=== PATIENT | female | born 2000 ===

== ENCOUNTER 2020-04-29 10:33 | Inpatient (IN) | payer OTHER, SELFPAY ==
[2020-04-29] VITALS (13 sets, daily range): BP systolic 119–156; BP diastolic 67–86; PULSE 82–115; RESP 16–20; TEMP 36.2–37.2; O2SAT 94–100; BMI 38.7
--- NOTE | 2020-04-29 11:02 | ED_ITS ---
HPI - Nausea/Vomiting/Diarrhea General Chief complaint: Nausea/Vomiting/Diarrhea <Lily Reyes NP - Last Filed: 04/29/20 17:23> Stated complaint: vomiting <Lily Reyes NP - Last Filed: 04/29/20 17:23> Time Seen by Provider: 04/29/20 10:57 <Lily Reyes NP - Last Filed: 04/29/20 17:23> Source: patient <Lily Reyes NP - Last Filed: 04/29/20 17:23> Mode of arrival: ambulatory <Lily Reyes NP - Last Filed: 04/29/20 17:23> Limitations: no limitations <Lily Reyes NP - Last Filed: 04/29/20 17:23> History of Present Illness HPI Narrative: 19 yo female previously healthy here with generalized abdominal pain, vomiting, diarrhea since last evening. The patient tells me that she ate [employer] (spicy chips) around 23:00 and then soon after developed abdominal pain with 2 episodes of vomiting. This morning continued pain and had 2 episodes of diarrhea. No vomiting this morning. No fevers, chills, urinary symptoms. <Lily Reyes NP - Last Filed: 04/29/20 17:23> MD elicited complaint: nausea, vomiting, diarrhea and abdominal pain <Lily Reyes NP - Last Filed: 04/29/20 17:23> Onset (ago): day(s) <Lily Reyes NP - Last Filed: 04/29/20 17:23> Associated nausea: Yes <Lily Reyes NP - Last Filed: 04/29/20 17:23> Associated abdominal pain: Yes <Lily Reyes NP - Last Filed: 04/29/20 17:23> Location of pain: diffuse <Lily Reyes NP - Last Filed: 04/29/20 17:23> Pain consistency: constant <CARMINE Christopher Last Filed: 04/29/20 17:23> Severity: mild <Lily Reyes NP - Last Filed: 04/29/20 17:23> Quality: cramping <Lily Reyes NP - Last Filed: 04/29/20 17:23> Exacerbating factors: none <Lily Reyes NP - Last Filed: 04/29/20 17:23> Relieving factors: none <Lily Reyes NP - Last Filed: 04/29/20 17:23> Associated symptoms: nausea/vomiting <Lily Reyes NP - Last Filed: 04/29/20 17:23> Related Data Home medications: Home Medications Medication Instructions Recorded Confirmed No Known Home Meds 04/29/20 04/29/20 <Lily Reyes NP - Last Filed: 04/29/20 17:23> Allergies/Adverse reactions: Allergies Allergy/AdvReac Type Severity Reaction Status Date / Time No Known Allergies Allergy Verified 04/29/20 10:59 <Lily Reyes NP - Last Filed: 04/29/20 17:23> Review of Systems Review of Systems: Yes all other systems are reviewed and are negative <Lily Reyes NP - Last Filed: 04/29/20 17:23> Constitutional: Constitutional: Reports no additional constitutional complaints, Denies body ache(s), Denies chills, Denies fever(s), Denies headache(s) and Denies weakness <Lily Reyes NP - Last Filed: 04/29/20 17:23> Eyes: Eyes: Reports no additional eye complaints and Denies change in vision <Lily Reyes NP - Last Filed: 04/29/20 17:23> ENT: Reports system reviewed and no additional complaints, except as doc umented, Denies dizziness, Denies headache(s), Denies nasal congestion, Denies nasal discharge and Denies neck pain <Lily Reyes NP - Last Filed: 04/29/20 17:23> Cardiovascular: Cardiovascular: Reports no additional cardiovascular complaints, Denies chest pain, Denies leg edema and Denies dyspnea <Lily Reyes NP - Last Filed: 04/29/20 17:23> Respiratory: Respiratory: Reports no additional respiratory complaints, Denies cough and Denies dyspnea <Lily Reyes NP - Last Filed: 04/29/20 17:23> Gastrointestinal: Gastrointestinal: Reports no additional gastrointestinal complaints, Reports abdominal pain, Reports diarrhea, Reports nausea and Reports vomiting <Lily Reyes NP - Last Filed: 04/29/20 17:23> Genitourinary: Genitourinary: Reports no additional female genitourinary complaints and Denies urinary incontinence <Lily Reyes NP - Last Filed: 04/29/20 17:23> Musculoskeletal: Musculoskeletal: Reports no additional musculoskeletal complaints, Denies back pain, Denies arthralgias, Denies joint swelling, Denies neck pain, Denies numbness and Denies tingling <Lily Reyes NP - Last Filed: 04/29/20 17:23> Integumentary/Breasts: Skin/Breast: Reports system reviewed and no additional complaints, except as docu and Denies rash <Lily Reyes NP - Last Filed: 04/29/20 17:23> Neurologic: Reports system reviewed and no additional complaints, except as documented, Denies Abnormal speech present, Denies dizziness, Denies headache(s), Denies numbness, Denies tingling and Denies weakness <Lily Reyes NP - Last Filed: 04/29/20 17:23> [facility] Past Medical History Attestation statement: The following information was validated with the patient. <Lily Reyes NP - Last Filed: 04/29/20 17:23> Source: old records reviewed and nursing notes reviewed <Lily Reyes NP - Last Filed: 04/29/20 17:23> Medical History: Medical History (Updated 04/30/20 @ 07:44 by Emily Landis PA-C) Bartholin cyst No known health problems <Lily Reyes NP - Last Filed: 04/29/20 17:23> Social History Social History: Social History Household Members: Significant Other Housing: Apartment Alcohol intake: never Smoking Status: Never smoker service: No Current occupational status: employed <CARMINE Christopher Last Filed: 04/29/20 17:23> Physical Exam Vital Signs: Vital Signs: Last Vital Signs Temp 98.4 F 04/30/20 07:48 Pulse 93 04/30/20 07:48 Resp 18 04/30/20 07:48 BP 109/66 04/30/20 07:48 Pulse Ox 97 04/30/20 07:48 Body Mass Index 38.7 <Lily Reyes NP - Last Filed: 04/29/20 17:23> Vital Signs: Last Vital Signs Temp 98.4 F 04/30/20 07:48 Pulse 93 04/30/20 07:48 Resp 18 04/30/20 07:48 BP 109/66 04/30/20 07:48 Pulse Ox 97 04/30/20 07:48 Body Mass Index 38.7 <Igor Zarate MD - Last Filed: 05/11/20 09:35> Const: General: cooperative, healthy appearing, comfortable and no acute distress <Lily Reyes NP - Last Filed: 04/29/20 17:23> Orientation/consciousness: patient oriented x3 <Lily Reyes NP - Last Filed: 04/29/20 17:23> Limitations: no limitations <Lily Reyes NP - Last Filed: 04/29/20 17:23> HENMT: Head: Yes normal to inspection <Lily Reyes NP - Last Filed: 04/29/20 17:23> Ears: hearing grossly normal bilaterally <Lily Reyes NP - Last Filed: 04/29/20 17:23> General nose exam: Normal external nose present <Lily Reyes NP - Last Filed: 04/29/20 17:23> Face and sinus: Yes normal facial exam <Lily Reyes NP - Last Filed: 04/29/20 17:23> Mouth: Normal oral and palatal mucosa present <Lily Reyes NP - Last Filed: 04/29/20 17:23> Throat: Yes posterior oropharynx normal <Lily Reyes NP - Last Filed: 04/29/20 17:23> Eyes: General: appearance normal, both eyes and all related structures <Lily Reyes NP - Last Filed: 04/29/20 17:23> Pupils: Equal, round and reactive pupils present <Lily Reyes NP - Last Filed: 04/29/20 17:23> Neck: Neck: Yes normal visual inspection <Lily Reyes [employer] - Last Filed: 04/29/20 17:23> Chest: Chest palpation & inspection: normal inspection of the chest <Lily Reyes [employer] - Last Filed: 04/29/20 17:23> Resp: Effort & Inspection: normal respiratory effort <Lily Reyes [employer] - Last Filed: 04/29/20 17:23> Auscultation: clear to auscultation bilaterally <Lily Reyes [employer] - Last Filed: 04/29/20 17:23> Cardio: Rate: regular rate <Lily Reyes NP - Last Filed: 04/29/20 17:23> Rhythm: regular rhythm <Lily Reyes [employer] - Last Filed: 04/29/20 17:23> Peripheral pulses: Peripheral pulses 2+ throughout <Lily Reyes NP - Last Filed: 04/29/20 17:23> GI: Other: Moderate diffuse tenderness, no focal tenderness <Lily Reyes [employer] - Last Filed: 04/29/20 17:23> Inspection: Yes normal to inspection <Lily Reyes NP - Last Filed: 04/29/20 17:23> Palpation (GI): Soft to palpation and nontender <Lily Reyes [employer] - Last Filed: 04/29/20 17:23> Auscultation: normal bowel sounds <Lily Reyes NP - Last Filed: 04/29/20 17:23> Back/Spine/Pelvis: Thoracic/Lumbar Spine: thoracic and lumbar spine normal to inspection <Lily Reyes NP - Last Filed: 04/29/20 17:23> Skin: General skin exam: no rashes or lesions noted <Lily Reyes [employer] - Last Filed: 04/29/20 17:23> Neuro: General: patient oriented x3, no focal motor deficits and normal sensation to monofilament <Lily Reyes NP - Last Filed: 04/29/20 17:23> Cranial nerves: Yes Equal, round and reactive pupils present <Lily Reyes NP - Last Filed: 04/29/20 17:23> Cognition (Neuro): normal cognition <Lily Reyes NP - Last Filed: 04/29/20 17:23> Speech: No Abnormal speech present <Lily Reyes NP - Last Filed: 04/29/20 17:23> Gait exam (Neuro): Normal gait present <Lily Reyes NP - Last Filed: 04/29/20 17:23> Motor exam (neuro): 5/5 motor strength present throughout <Lily Reyes NP - Last Filed: 04/29/20 17:23> Extrem: General: Yes normal to inspection <Lily Reyes NP - Last Filed: 04/29/20 17:23> Course Course Course Narrative: 19-year-old female here with generalized abdominal pain described as cramping with vomiting and diarrhea since last night after eating some spicy chips. On exam the patient has mild diffuse tenderness. She has no focal tenderness. Will check labs, UA. Place PIV and give normal saline bolus, antiemetic, PPI and GI Cocktail. 1300-Continued pain, vomiting. Labs reviewed and unremarkable. UA, negative. Will provide analgesia and repeat antiemetic. Check imaging. 1415-CT consistent with appendicitis. Call out to surgery to discuss. 1430-spoke to Dr. Ram from surgery. Antibiotics ordered per her request. COVID swab ordered. She will be down to admit the patient. 1645-Patient admitted by Dr Avila. <Lily Reyes NP - Last Filed: 17:23> I have reviewed the chart <Igor Zarate MD - Last Filed: 05/11/20 09:35> MDM - Nausea/Vomiting/Diarrhea MDM Narrative Medical decision making narrative: Gastritis, gastroenteritis, GERD, choleystitis, appendicitis <Lily Reyes NP - Last Filed: 04/29/20 17:23> Medical Records Attestation: I reviewed the patient's medical records. <Lily Reyes NP - Last Filed: 04/29/20 17:23> Lab Data Attestation: I reviewed the patient's lab results. <Lily Reyes NP - Last Filed: 04/29/20 17:23> Result diagrams: : 04/29/20 11:15 04/29/20 11:15 <Lily Reyes NP - Last Filed: 04/29/20 17:23> Labs: Lab Results 04/29/20 04/29/20 04/29/20 Range/Units 11:15 11:15 11:15 WBC 11.9 H (4.8-10.8) X10*3/uL RBC 4.78 (4.20-5.50) X10*6/uL Hgb 13.3 (12.0-16.0) g/dl Hct 40.5 (37-47) % MCV 84.7 (80-98) fL MCH 27.8 (27.0-33.0) pg MCHC 32.8 (31.0-35.0) g/dl RDW 13.4 (11.0-16.0) % Plt Count 275 (160-400) X10*3/uL MPV 10.6 (9.4-12.3) fL Immature Gran % (Auto) 0.3 (0.0-0.4) % Neut % (Auto) 87.5 H (45-73) % Lymph % (Auto) 7.8 L (20-40) % [place] % (Auto) 3.8 (2-11) % Eos % (Auto) 0.3 (0-4) % Baso % (Auto) 0.3 (0-2) % Lymph # (Auto) 0.9 L (1.2-4.9) X10*3/uL [place] # (Auto) 0.5 (0.1-1.2) X10*3/uL Eos # (Auto) 0.0 (0.0-0.4) X10*3/uL Baso # (Auto) 0.0 (0.0-0.2) X10*3/uL Abs Immat Gran (auto) 0.03 (0.00-0.03) X10*3/uL Absolute Neuts (auto) 10.4 H (2.0-8.3) X10*3/uL Absolute Nucleated RBC 0.000 (0.0-0.012) X10*3/uL Nucleated RBC % (auto) 0.0 (0.0-0.2) /100WBC Hold Blue Top SEE NOTE Sodium 136 (135-145) mmol/L Potassium 4.2 (3.3-5.1) mmol/l Chloride 101 (96-108) mmol/L Carbon Dioxide 25 (22-29) mmol/L Anion Gap 14 (12-20) BUN 7 L (9-16) mg/dL Creatinine 0.67 (0.5-1.4) mg/dL Estim Creat Clear Calc 160.3 Estimated GFR > 60 Random Glucose 168 H (60-115) mg/dL Lactic Acid (0.5-2.0) mmol/L Calcium 8.9 (8.4-10.2) mg/dL Total Bilirubin 0.5 (0.0-1.0) mg/dL Direct Bilirubin 0.2 (0.0-0.5) mg/dL AST 41 H (5-31) U/L ALT 60 H (0-31) U/L Alkaline Phosphatase 101 (39-117) U/L Total Protein 7.2 (6.5-8.0) g/dL Albumin 4.2 (3.5-5.0) g/dL Urine Color Urine Appearance Urine pH (5.0-8.0) Ur Specific [place] (1.005-1.025) Urine Protein (NEG-TRACE) MG/DL Urine Glucose (UA) (NEG) MG/DL Urine Ketones (NEG) MG/DL Urine Blood (NEG) Urine Nitrite (NEG) Ur Leukocyte Esterase (NEG) Urine RBC (0) /HPF Urine WBC (0-4) /HPF Ur Squamous Epith Cells /LPF Talc Crystals /LPF Urine Bacteria /LPF Urine Mucus /LPF Urine Test (NEGATIVE) COVID-19 ([facility]) (Negative) COVID-19 Clin Com 04/29/20 04/29/20 04/29/20 Range/Units 12:26 14:45 14:45 WBC (4.8-10.8) X10*3/uL RBC (4.20-5.50) X10*6/uL Hgb (12.0-16.0) g/dl Hct (37-47) % MCV (80-98) fL MCH (27.0-33.0) pg MCHC (31.0-35.0) g/dl RDW (11.0-16.0) % Plt Count (160-400) X10*3/uL MPV (9.4-12.3) fL Immature Gran % (Auto) (0.0-0.4) % Neut % (Auto) (45-73) % Lymph % (Auto) (20-40) % [place] % (Auto) (2-11) % Eos % (Auto) (0-4) % Baso % (Auto) (0-2) % Lymph # (Auto) (1.2-4.9) X10*3/uL [place] # (Auto) (0.1-1.2) X10*3/uL Eos # (Auto) (0.0-0.4) X10*3/uL Baso # (Auto) (0.0-0.2) X10*3/uL Abs Immat Gran (auto) (0.00-0.03) X10*3/uL Absolute Neuts (auto) (2.0-8.3) X10*3/uL Absolute Nucleated RBC (0.0-0.012) X10*3/uL Nucleated RBC % (auto) (0.0-0.2) /100WBC Hold Blue Top Sodium (135-145) mmol/L Potassium (3.3-5.1) mmol/l Chloride (96-108) mmol/L Carbon Dioxide (22-29) mmol/L Anion Gap (12-20) BUN (9-16) mg/dL Creatinine (0.5-1.4) mg/dL Estim Creat Clear Calc Estimated GFR Random Glucose (60-115) mg/dL Lactic Acid 1.4 (0.5-2.0) mmol/L Calcium (8.4-10.2) mg/dL Total Bilirubin (0.0-1.0) mg/dL Direct Bilirubin (0.0-0.5) mg/dL AST (5-31) U/L ALT (0-31) U/L Alkaline Phosphatase (39-117) U/L Total Protein (6.5-8.0) g/dL Albumin (3.5-5.0) g/dL Urine Color YELLOW Urine Appearance HAZY Urine pH 8.0 (5.0-8.0) Ur Specific [place] 1.020 (1.005-1.025) Urine Protein NEG (NEG-TRACE) MG/DL Urine Glucose (UA) NEG (NEG) MG/DL Urine Ketones NEG (NEG) MG/DL Urine Blood 3+ H (NEG) Urine Nitrite NEG (NEG) Ur Leukocyte Esterase NEG (NEG) Urine RBC 10-14 H (0) /HPF Urine WBC 0 (0-4) /HPF Ur Squamous Epith Cells 1+ /LPF Talc Crystals 2+ /LPF Urine Bacteria NONE /LPF Urine Mucus 1+ /LPF Urine Test NEGATIVE (NEGATIVE) COVID-19 ([facility]AYLA) Negative (Negative) COVID-19 Clin Com See Note <Lily Reyes NP - Last Filed: 04/29/20 17:23> Lab Results 04/29/20 04/29/20 04/29/20 Range/Units 11:15 11:15 11:15 WBC 11.9 H (4.8-10.8) X10*3/uL RBC 4.78 (4.20-5.50) X10*6/uL Hgb 13.3 (12.0-16.0) g/dl Hct 40.5 (37-47) % MCV 84.7 (80-98) fL MCH 27.8 (27.0-33.0) pg MCHC 32.8 (31.0-35.0) g/dl RDW 13.4 (11.0-16.0) % Plt Count 275 (160-400) X10*3/uL MPV 10.6 (9.4-12.3) fL Immature Gran % (Auto) 0.3 (0.0-0.4) % Neut % (Auto) 87.5 H (45-73) % Lymph % (Auto) 7.8 L (20-40) % [place] % (Auto) 3.8 (2-11) % Eos % (Auto) 0.3 (0-4) % Baso % (Auto) 0.3 (0-2) % Lymph # (Auto) 0.9 L (1.2-4.9) X10*3/uL [place] # (Auto) 0.5 (0.1-1.2) X10*3/uL Eos # (Auto) 0.0 (0.0-0.4) X10*3/uL Baso # (Auto) 0.0 (0.0-0.2) X10*3/uL Abs Immat Gran (auto) 0.03 (0.00-0.03) X10*3/uL Absolute Neuts (auto) 10.4 H (2.0-8.3) X10*3/uL Absolute Nucleated RBC 0.000 (0.0-0.012) X10*3/uL Nucleated RBC % (auto) 0.0 (0.0-0.2) /100WBC Hold Blue Top SEE NOTE Sodium 136 (135-145) mmol/L Potassium 4.2 (3.3-5.1) mmol/l Chloride 101 (96-108) mmol/L Carbon Dioxide 25 (22-29) mmol/L Anion Gap 14 (12-20) BUN 7 L (9-16) mg/dL Creatinine 0.67 (0.5-1.4) mg/dL Estim Creat Clear Calc 160.3 Estimated GFR > 60 Random Glucose 168 H (60-115) mg/dL Lactic Acid (0.5-2.0) mmol/L Calcium 8.9 (8.4-10.2) mg/dL Total Bilirubin 0.5 (0.0-1.0) mg/dL Direct Bilirubin 0.2 (0.0-0.5) mg/dL AST 41 H (5-31) U/L ALT 60 H (0-31) U/L Alkaline Phosphatase 101 (39-117) U/L Total Protein 7.2 (6.5-8.0) g/dL Albumin 4.2 (3.5-5.0) g/dL Urine Color Urine Appearance Urine pH (5.0-8.0) Ur Specific [place] (1.005-1.025) Urine Protein (NEG-TRACE) MG/DL Urine Glucose (UA) (NEG) MG/DL Urine Ketones (NEG) MG/DL Urine Blood (NEG) Urine Nitrite (NEG) Ur Leukocyte Esterase (NEG) Urine RBC (0) /HPF Urine WBC (0-4) /HPF Ur Squamous Epith Cells /LPF Talc Crystals /LPF Urine Bacteria /LPF Urine Mucus /LPF Urine Test (NEGATIVE) COVID-19 ([facility]LA) (Negative) COVID-19 Clin Com 04/29/20 04/29/20 04/29/20 Range/Units 12:26 14:45 14:45 WBC (4.8-10.8) X10*3/uL RBC (4.20-5.50) X10*6/uL Hgb (12.0-16.0) g/dl Hct (37-47) % MCV (80-98) fL MCH (27.0-33.0) pg MCHC (31.0-35.0) g/dl RDW (11.0-16.0) % Plt Count (160-400) X10*3/uL MPV (9.4-12.3) fL Immature Gran % (Auto) (0.0-0.4) % Neut % (Auto) (45-73) % Lymph % (Auto) (20-40) % [place] % (Auto) (2-11) % Eos % (Auto) (0-4) % Baso % (Auto) (0-2) % Lymph # (Auto) (1.2-4.9) X10*3/uL [place] # (Auto) (0.1-1.2) X10*3/uL Eos # (Auto) (0.0-0.4) X10*3/uL Baso # (Auto) (0.0-0.2) X10*3/uL Abs Immat Gran (auto) (0.00-0.03) X10*3/uL Absolute Neuts (auto) (2.0-8.3) X10*3/uL Absolute Nucleated RBC (0.0-0.012) X10*3/uL Nucleated RBC % (auto) (0.0-0.2) /100WBC Hold Blue Top Sodium (135-145) mmol/L Potassium (3.3-5.1) mmol/l Chloride (96-108) mmol/L Carbon Dioxide (22-29) mmol/L Anion Gap (12-20) BUN (9-16) mg/dL Creatinine (0.5-1.4) mg/dL Estim Creat Clear Calc Estimated GFR Random Glucose (60-115) mg/dL Lactic Acid 1.4 (0.5-2.0) mmol/L Calcium (8.4-10.2) mg/dL Total Bilirubin (0.0-1.0) mg/dL Direct Bilirubin (0.0-0.5) mg/dL AST (5-31) U/L ALT (0-31) U/L Alkaline Phosphatase (39-117) U/L Total Protein (6.5-8.0) g/dL Albumin (3.5-5.0) g/dL Urine Color YELLOW Urine Appearance HAZY Urine pH 8.0 (5.0-8.0) Ur Specific [place] 1.020 (1.005-1.025) Urine Protein NEG (NEG-TRACE) MG/DL Urine Glucose (UA) NEG (NEG) MG/DL Urine Ketones NEG (NEG) MG/DL Urine Blood 3+ H (NEG) Urine Nitrite NEG (NEG) Ur Leukocyte Esterase NEG (NEG) Urine RBC 10-14 H (0) /HPF Urine WBC 0 (0-4) /HPF Ur Squamous Epith Cells 1+ /LPF Talc Crystals 2+ /LPF Urine Bacteria NONE /LPF Urine Mucus 1+ /LPF Urine Test NEGATIVE (NEGATIVE) COVID-19 ([facility]LA) Negative (Negative) COVID-19 Clin Com See Note <Igor Zarate MD - Last Filed: 05/11/20 09:35> Imaging Data CT scan - abdomen: Attestation: I personally reviewed and interpreted this imaging study as follows: <Lily Reyes NP - Last Filed: 04/29/20 17:23> Radiologist's impression: CLINICAL INFORMATION: Fall, trauma, pain COMPARISON: None TECHNIQUE: Left knee is imaged in 4 views including crosstable lateral projection. FINDINGS: There is a fracture involving the lateral tibial plateau with mild depression. There may be fracture line extending through the lateral tibial spine. There is no dislocation. The distal femur, fibula, and patella appear intact. There is moderate suprapatellar effusion without visible fatty fluid level. No bony destructive process. XR/XR knee LT 4V IMPRESSION: Fracture lateral tibial plateau with mild depression. <Lily Reyes NP - Last Filed: 04/29/20 17:23> Discharge Plan Discharge Clinical Impression: Acute appendicitis Qualifiers: Acute appendicitis type: unspecified acute appendicitis type Qualified Code(s): K35.80 - Unspecified acute appendicitis <Lily Reyes NP - Last Filed: 04/29/20 17:23> Patient Disposition: Admitted As Inpatient <Lily Reyes NP - Last Filed: 04/29/20 17:23> Interventions: Admission Worksheet (ED) Last Done: 04/29/20 16:55 <Lily Reyes NP - Last Filed: 04/29/20 17:23> Discharge Date/Time: 04/29/20 16:55 <Lily Reyes NP - Last Filed: 04/29/20 17:23>
[2020-04-29] MEDS: 0.9 % Sodium Chloride 1,000 ML 999 ML IV (11:20)
[2020-04-29] MEDS: ondansetron HCL 4 MG/2 ML VIAL IVPUSH ×2 (11:20→13:15)
[2020-04-29] MEDS: Magnesium Hydrox/Alum Hydrox 30 ML ORAL.SUSP PO (11:20)
[2020-04-29] MEDS: Lidocaine HCl Viscous 2 % 15 ML SOLUTION MUCOUS MEM (11:20)
[2020-04-29] MEDS: Famotidine/PF 20 MG/2 ML VIAL IVPUSH (11:20)
[2020-04-29 11:25] LABS: MANUAL DIFF FLAG NO
[2020-04-29 11:26] LABS: Basophils Percent Auto 0.3 % (0-2); Eosinophils Percent Auto 0.3 % (0-4); Hematocrit 40.5 % (37-47); Hemoglobin 13.3 g/dl (12.0-16.0); Imm Gran Abs Auto 0.03 X10*3/uL (0.00-0.03); Imm Gran Pct Auto 0.3 % (0.0-0.4); Lymphocytes Absolute Auto 0.9 X10*3/uL (1.2-4.9); Lymphocytes Percent Auto 7.8 % (20-40); Mean Corpuscular HGB Conc 32.8 g/dl (31.0-35.0); Mean Corpuscular Hemoglobin 27.8 pg (27.0-33.0); Mean Corpuscular Volume 84.7 fL (80-98); Mean Platelet Volume 10.6 fL (9.4-12.3); Monocytes Absolute Auto 0.5 X10*3/uL (0.1-1.2); Monocytes Percent Auto 3.8 % (2-11); Neutrophils Absolute Auto 10.4 X10*3/uL (2.0-8.3); Neutrophils Percent Auto 87.5 % (45-73); Platelet Count 275 X10*3/uL (160-400); Red Blood Count 4.78 X10*6/uL (4.20-5.50); Red Cell Distribution Width 13.4 % (11.0-16.0); White Blood Count 11.9 X10*3/uL (4.8-10.8)
[2020-04-29 11:54] LABS: Alanine Aminotransferase 60 U/L (0-31); Albumin Level 4.2 g/dL (3.5-5.0); Alkaline Phosphatase 101 U/L (39-117); Anion Gap 14 (12-20); Aspartate Amino Transferase 41 U/L (5-31); Bilirubin Direct 0.2 mg/dL (0.0-0.5); Bilirubin Total 0.5 mg/dL (0.0-1.0); Blood Urea Nitrogen 7 mg/dL (9-16); Calcium 8.9 mg/dL (8.4-10.2); Carbon Dioxide 25 mmol/L (22-29); Chloride 101 mmol/L (96-108); Creatinine Clr Calc Pharmacy 160.3; Estimated Glomerular Filt Rate > 60; Glucose Random 168 mg/dL (60-115); Potassium 4.2 mmol/l (3.3-5.1); Sodium 136 mmol/L (135-145); Total Protein 7.2 g/dL (6.5-8.0)
[2020-04-29 12:46] LABS: Glucose Urine UA NEG (NEG); Leukocyte Esterase Urine NEG (NEG); Nitrite Urine NEG (NEG); Urine Blood 3+ (NEG); Urine Ketones NEG (NEG); Urine Protein NEG (NEG-TRACE)
[2020-04-29 12:48] LABS: UPreg QC Valid YES; Urine Pregnancy NEGATIVE (NEGATIVE)
[2020-04-29 12:50] LABS: Appearance Urine HAZY; Color Urine YELLOW
[2020-04-29 13:01] LABS: Mucus Urine 1+ /LPF; Squamous Epithelial Cell Urine 1+ /LPF; WBC Urine 0 /HPF (0-4)
[2020-04-29 13:02] LABS: Urine Talc Crystals 2+ /LPF
--- NOTE | 2020-04-29 13:06 | CT_ITS ---
EXAMINATION: CT ABDOMEN AND PELVIS WITH CONTRAST CLINICAL INFORMATION: Indication abdominal pain, vomiting, diarrhea COMPARISON: None TECHNIQUE: Multidetector volumetric images were obtained from the superior aspect of the liver through the pubic symphysis following administration 85 mL of Omnipaque 350 intravenous contrast. Sagittal and coronal reformatted images were obtained on the technologist's workstation. Oral contrast: No This CT examination was performed using dose optimization techniques as appropriate, variously including the following: *Automated exposure control *Adjustment of mA and/or kV according to patient size (this includes techniques or standardized protocols for targeted exams where dose is matched to indication/reason for exam; i.e. extremities or head) *Use of iterative reconstruction technique DLP: 1055 mGy-cm FINDINGS: LUNG BASES: The visualized lung bases are unremarkable. LIVER, GALLBLADDER, AND BILIARY TREE: Liver is normal in size and smooth in contour. There is mild diffuse hepatic steatosis. No focal hepatic parenchymal lesion or intrahepatic ductal dilatation. The gallbladder is unremarkable with no evidence of radiopaque gallstones, gallbladder wall thickening, or obvious pericholecystic inflammatory changes. PANCREAS: Unremarkable. SPLEEN: Unremarkable. ADRENAL GLANDS: Unremarkable. KIDNEYS AND URETERS: Kidneys are normal in size and enhance symmetrically. There is no hydronephrosis, hydroureter, calculi, or perinephric stranding. There are 2 small right kidney upper to midpole, both under 1 cm. BLADDER: Unremarkable. GASTROINTESTINAL TRACT: The appendix is distended to 1.2 cm in diameter with fluid in the appendiceal lumen and mild appendiceal wall enhancement suggesting appendicitis. There is no significant stranding in the mesentery and no proximal obstruction, ascites, or fluid collection. ABDOMINAL WALL: Borderline fat-containing umbilical hernia under 3 cm. LYMPH NODES: There are some small mesenteric nodes central mesentery. No retroperitoneal or pelvic lymphadenopathy. VASCULAR: Circum-aortic left renal vein. PELVIC VISCERA: There are bilateral adnexal cysts, larger on right measuring 2.8 x 2.2 cm and left measuring 2.4 x 2.2 cm. No pelvic ascites. There is fluid in uterine cavity likely from menses. OSSEOUS STRUCTURES: No acute bony abnormality. Incidental bone island proximal left femur. Results called to provider Lily Reyes in the Emergency Department at [address]/CT abdomen pelvis w con IMPRESSION: 1. Findings consistent with early appendicitis. No abscess or proximal obstruction. 2. Small bilateral adnexal cysts versus dominant follicle, right 2.8 x 2.2 cm. Left 2.4 x 2.2 cm. 3. Hepatic steatosis.
[2020-04-29] MEDS: Morphine Sulfate 4 MG/ML CARTRIDGE IVPUSH (13:15)
[2020-04-29] MEDS: iohexoL 350 MG/ML 100 ML INFUS..BTL 85 ML IV (13:47)
[2020-04-29 15:14] LABS: Lactic Acid 1.4 mmol/L (0.5-2.0)
[2020-04-29 15:15] LABS: COVID-19 Test Negative (Negative); IDNOW Serial# 9DD0AD1C
[2020-04-29] MEDS: Piperacillin Sodium/Tazobactam 3.375 GM in 0.9 % Sodium Chloride 50 ML IV (15:15)
--- NOTE | 2020-04-29 15:20 | PC.NURSE ---
pt denies discomfort at this time, no abd guarding or facial grimace noted. md guadalupe has evaluated pt, plan is for surgery tonight, pt is aware and agreeable to plan of care.
--- NOTE | 2020-04-29 15:26 | PM.HPGS ---
History of Present Illness History of Present Illness Date of Service: 04/29/20 Chief complaint: vomiting Narrative: Shabana Hall is a 19 year old female who had acute onset of abdominal pain nausea and vomiting around midnight last night after eating some spicy chips. The symptoms persisted and the pain became worse as the night went on leading to presentation to the emergency room. Initially, the pain was in the mid epigastric area, but over time it has migrated to the lower abdomen. She does not report fever or chills. She had 1 similar episode in the past that resolved spontaneously after short period of time. She does not report diarrhea or constipation. White blood count is mildly elevated at 11.9. CT scan of the abdomen and pelvis is consistent with early acute appendicitis. Review of Systems Constitutional: Constitutional: Denies headache(s) and Denies weakness ENT: Denies dizziness and Denies headache(s) Cardiovascular: Cardiovascular: Denies chest pain, Denies irregular heart rhythm and Reports dyspnea on exertion (Mild) Respiratory: Respiratory: Denies cough, Reports dyspnea on exertion (Mild) and Denies wheezing Genitourinary: Comments: No dysuria Musculoskeletal: Musculoskeletal: Denies numbness and Denies tingling Neurologic: Reports system reviewed and no additional complaints, except as documented, Denies Abnormal speech present, Denies dizziness, Denies headache(s), Denies numbness, Denies tingling and Denies weakness Allergic/Immunologic: Allergic/Immunologic: Denies wheezing PMFSH Past Medical History Medical History No known health problems Social History Social History Alcohol intake: never Smoking Status: Never smoker Use of substances other than those prescribed or required for medical reasons: No Advance Directives: No Advance Directives Information Provided: No Meds Allergies Allergy/AdvReac Type Severity Reaction Status Date / Time No Known Allergies Allergy Verified 04/29/20 10:59 Home Medications Medication Instructions Recorded Confirmed Type No Known Home Meds 04/29/20 04/29/20 History Physical Exam Vital Signs: Vital Signs: Last Vital Signs Temp 98.9 F 04/29/20 12:51 Pulse 98 04/29/20 15:19 Resp 16 04/29/20 15:19 BP 144/67 H 04/29/20 15:19 Pulse Ox 99 04/29/20 15:19 Body Mass Index 38.7 Const: Other: Alert, appears comfortable, in no acute distress HENMT: Head: Yes normocephalic and Yes atraumatic Neck: Other: Supple, trachea midline Resp: Other: Clear to auscultation Cardio: Other: Regular rate and rhythm without audible murmurs GI: Other: Round, soft, tender lower midline and right lower quadrant, greater and right lower quadrant with rebound, no palpable masses Rectal Exam - Female: deferred Neuro: Speech: No Abnormal speech present Extrem: General: Yes normal to inspection Psych: Insight: Good insight present (Psych) Judgement: Good judgement present (Psych) Results Results Labs: Short CBC 04/29/20 Range/Units 11:15 WBC 11.9 H (4.8-10.8) X10*3/uL Hgb 13.3 (12.0-16.0) g/dl Hct 40.5 (37-47) % Plt Count 275 (160-400) X10*3/uL BMP 04/29/20 11:15 Sodium 136 Potassium 4.2 Chloride 101 Carbon Dioxide 25 BUN 7 L Creatinine 0.67 Calcium 8.9 Liver Function 04/29/20 Range/Units 11:15 Total Bilirubin 0.5 (0.0-1.0) mg/dL Direct Bilirubin 0.2 (0.0-0.5) mg/dL AST 41 H (5-31) U/L ALT 60 H (0-31) U/L Alkaline Phosphatase 101 (39-117) U/L Albumin 4.2 (3.5-5.0) g/dL Urine 04/29/20 Range/Units 12:26 Urine Color YELLOW Urine Appearance HAZY Urine pH 8.0 (5.0-8.0) Ur Specific [place] 1.020 (1.005-1.025) Urine Protein NEG (NEG-TRACE) MG/DL Urine Glucose (UA) NEG (NEG) MG/DL Urine Test NEGATIVE (NEGATIVE) Assessment and Plan (1) Acute appendicitis: Problem details: We discussed the diagnosis of acute appendicitis and treatment options including antibiotic therapy, laparoscopic appendectomy and open appendectomy. We reviewed the pros and cons of each. Status: Acute Acute appendicitis. She has elected to proceed with laparoscopic appendectomy. She is aware that open appendectomy may be required. She is familiar with the technique and risks including but not limited to infection, bleeding, error in diagnosis and appendiceal stump leak as well as incisional hernia of open appendectomy is required. She will be started on IV antibiotics. Surgery is planned for later this afternoon.
--- NOTE | 2020-04-29 16:22 | P.CONAN_ITS ---
HPI - Anesthesia Eval Consult details Narrative: 19 F previously healthy p/w acute appendicitis for lap appendectomy [facility] Past Medical History Medical History (Updated 04/29/20 @ 16:39 by Padmini Orr RN) Bartholin cyst No known health problems Social History Social History Alcohol intake: never Smoking Status: Never smoker Use of substances other than those prescribed or required for medical reasons: No Advance Directives: No Advance Directives Information Provided: No Meds Allergies Allergy/AdvReac Type Severity Reaction Status Date / Time No Known Allergies Allergy Verified 04/29/20 10:59 Home Medications Medication Instructions Recorded Confirmed Type No Known Home Meds 04/29/20 04/29/20 History Exam Exam Date and Time: April 29, 2020 1622 Height,Weight and Vital Signs: Height 5 ft 5 in Weight 105.687 kg Last Vital Signs Temp 98.3 F 04/29/20 16:21 Pulse 109 H 04/29/20 16:21 Resp 16 04/29/20 15:19 BP 144/82 H 04/29/20 16:21 Pulse Ox 100 04/29/20 16:21 Pertinent Lab Results Pertinent Lab Results: Laboratory Tests 04/29/20 04/29/20 04/29/20 11:15 11:15 11:15 WBC 11.9 H RBC 4.78 Hgb 13.3 Hct 40.5 MCV 84.7 MCH 27.8 MCHC 32.8 RDW 13.4 Plt Count 275 MPV 10.6 Immature Gran % (Auto) 0.3 Neut % (Auto) 87.5 H Lymph % (Auto) 7.8 L [place] % (Auto) 3.8 Eos % (Auto) 0.3 Baso % (Auto) 0.3 Lymph # (Auto) 0.9 L [place] # (Auto) 0.5 Eos # (Auto) 0.0 Baso # (Auto) 0.0 Abs Immat Gran (auto) 0.03 Absolute Neuts (auto) 10.4 H Absolute Nucleated RBC 0.000 Nucleated RBC % (auto) 0.0 Hold Blue Top SEE NOTE Sodium 136 Potassium 4.2 Chloride 101 Carbon Dioxide 25 Anion Gap 14 BUN 7 L Creatinine 0.67 Estim Creat Clear Calc 160.3 Estimated GFR > 60 Random Glucose 168 H Lactic Acid Calcium 8.9 Total Bilirubin 0.5 Direct Bilirubin 0.2 AST 41 H ALT 60 H Alkaline Phosphatase 101 Total Protein 7.2 Albumin 4.2 Urine Color Urine Appearance Urine pH Ur Specific [place] Urine Protein Urine Glucose (UA) Urine Ketones Urine Blood Urine Nitrite Ur Leukocyte Esterase Urine RBC Urine WBC Ur Squamous Epith Cells Talc Crystals Urine Bacteria Urine Mucus Urine Test COVID-19 ([facility]) COVID-19 Clin Com 04/29/20 04/29/20 04/29/20 12:26 14:45 14:45 WBC RBC Hgb Hct MCV MCH MCHC RDW Plt Count MPV Immature Gran % (Auto) Neut % (Auto) Lymph % (Auto) [place] % (Auto) Eos % (Auto) Baso % (Auto) Lymph # (Auto) [place] # (Auto) Eos # (Auto) Baso # (Auto) Abs Immat Gran (auto) Absolute Neuts (auto) Absolute Nucleated RBC Nucleated RBC % (auto) Hold Blue Top Sodium Potassium Chloride Carbon Dioxide Anion Gap BUN Creatinine Estim Creat Clear Calc Estimated GFR Random Glucose Lactic Acid 1.4 Calcium Total Bilirubin Direct Bilirubin AST ALT Alkaline Phosphatase Total Protein Albumin Urine Color YELLOW Urine Appearance HAZY Urine pH 8.0 Ur Specific [place] 1.020 Urine Protein NEG Urine Glucose (UA) NEG Urine Ketones NEG Urine Blood 3+ H Urine Nitrite NEG Ur Leukocyte Esterase NEG Urine RBC 10-14 H Urine WBC 0 Ur Squamous Epith Cells 1+ [place] Crystals 2+ Urine Bacteria NONE Urine Mucus 1+ Urine Test NEGATIVE COVID-19 ([facility]) Negative COVID-19 Clin Com See Note Airway Mallampati Class: III TM Dist: >3cm Neck ROM: Full Loose/Missing/Broken Teeth: No Heart: rrr Lungs: nl Other: ao Assessment and Plan Assessment Anesthesia Assessment: Anesthesia Plan Discussed and Chart Reviewed Final Anesthetic Review NPO: Yes ASA Class: II Final Preanesthetic Review: No Changes in Pt Med Stat, Meds/Allgs Chart Reviewed, Consent Obtained/Reviewed and Anes Risks/Benef Reviewed Patient Risk: Low Procedure Risk: Low Anesthetic Plan Anesthetic Plan: GA Disposition: Standard PACU
--- NOTE | 2020-04-29 16:23 | PC.NURSE ---
pt amb to bathroom stated she voided large amt clear urine. belongings list competed, pt ready tp be transported to PACU
[2020-04-29] MEDS: Lactated Ringers 1,000 ML 50 ML IVCONT (16:50)
--- NOTE | 2020-04-29 17:03 | MHC.SHP ---
Pre-Procedural Eval Section A The patient is an INPATIENT: Yes Section B Chief Complaint: vomiting Allergies: Allergies Allergy/AdvReac Type Severity Reaction Status Date / Time No Known Allergies Allergy Verified 04/29/20 10:59 Plan Diagnosis/Plan: Unchanged Patient has been examined and remains a candidate for the planned procedure
--- NOTE | 2020-04-29 18:28 | W.PM.OPN ---
Operative Note Operative Note Date of Service: 04/29/20 Narrative: Preoperative Diagnosis: Acute Appendicitis Postoperative diagnosis: Same Procedure: Laparoscopic appendectomy Manager Intelligence: None Anesthesia: General endotracheal Specimen: Appendix Urine output: 100 cc Immediate complications: None Estimated blood loss: Less than 5 cc Indications: This is a 19-year-old female who had onset of epigastric pain nausea and vomiting late last night. She presented to the emergency room this morning for evaluation. White blood count was mildly elevated. CT scan of the abdomen and pelvis was consistent with early acute appendicitis and examination revealed right lower quadrant tenderness and rebound. Findings: The appendix appeared acutely inflamed along the distal portion. There is no evidence of perforation. Procedure in detail: With the patient in the supine position after the induction of adequate general anesthesia, time-out procedure was performed. 2 g of cefotetan were infused for antibiotic prophylaxis. Each trocar site was infiltrated with local anesthetic prior to making incisions. Unknown infraumbilical incision was made and was carried down to the level of the fascia. The fascia was grasped in the midline with a Yoanna clamp and holding sutures of 0 Polysorb were placed on either side. The Yoanna was released and the fascia was split in the midline. The peritoneal cavity was entered. The Lopez trocar was inserted and stabilized with the fascial sutures. The abdomen was insufflated with carbon dioxide to a pressure of 15 mm of mercury. The 0 degree, 5 mm laparoscoped was inserted and the peritoneal cavity was visualized. No abnormalities were identified initially. 5 mm trocars were placed laterally in the left lower quadrant and in the lower midline. The patient was rotated slightly left side down and placed in mild Trendelenburg. Blunt graspers were inserted through the 5 mm trocars and the omentum and small bowel reflected medially. The cecum was identified. The appendix was noted lying along the lateral pelvic wall. It was grasped with a blunt grasper and was elevated. The lower midline grasper was employed. The 5 mm laparoscopic LigaSure was then inserted through the left lower quadrant grasper and the mesoappendix was divided using the LigaSure or with division carried down to the base of the appendix. The laparoscopic was then removed and was reinserted through the left lower quadrant trocar. The Endo GREGOR 30, 3.5 stapler was inserted through the has son. It was placed across the base of the appendix at the junction with the cecum and was closed. The jaws were inspected to ensure that no extraneous tissues were included. The device was then fired, opened and removed. The specimen pouch was inserted through the Bhavna trocar. The appendix was placed into the pouch. The pouch was closed and withdrawn along with the his son. The Bhavna was then reinserted. The laparoscopic was placed back through the Lopez trocar. A blunt grasper was inserted through the lower midline trocar and the small bowel was again reflected medially to expose the cecum. The staple line was inspected. There was no evidence of bleeding. The right lower quadrant was copiously irrigated with warm saline solution and was again inspected. Again, no bleeding was seen. The 5 mm trocars were then removed under direct vision with no evidence of bleeding. Insufflation was discontinued and gas was allowed to escape from the peritoneal cavity. The Bhavna trocar was then removed. Fascia at the Bhavna site was closed with a [id number] suture of 0 Polysorb and holding sutures were tied to 1 another. Additional local anesthetic infiltration was carried out into the fascia. Skin incisions were then closed with subcuticular sutures of 4-0 Polysorb. Steri-Strips gauze and adhesive dressings were applied. She tolerated the procedure well and was transported to the recovery room in stable condition. There were no immediate complications.
[2020-04-29] MEDS: Dextrose 5 % and Lactated Ring 1,000 ML 100 ML IVCONT (19:20)
[2020-04-29] MEDS: Docusate Sodium 100 MG CAPSULE PO (21:21)
[2020-04-30 00:01] VITALS: BP 118/63; PULSE 110; RESP 16; TEMP 36.7; O2SAT 96
[2020-04-30] MEDS: Acetaminophen 325 MG TABLET 650 MG PO ×2 (00:17→05:30)
[2020-04-30] MEDS: Dextrose 5 % and Lactated Ring 1,000 ML 100 ML IVCONT (07:14)
--- NOTE | 2020-04-30 07:41 | PM.PNGS ---
Subjective Subjective Date of Service: 04/30/20 <Emily Landis PA-C - Last Filed: 04/30/20 07:46> 04/30/20 <Marbella Ram MD - Last Filed: 04/30/20 17:21> Interval history: Tired. Otherwise feels well. Denies abdominal pain. Had some water and cesario jori overnight. Denies nausea. OOB to bathroom. <Emily Landis PA-C - Last Filed: 04/30/20 07:46> Physical Exam Vital Signs: Vital Signs: Last Vital Signs Temp 98.1 F 04/30/20 00:01 Pulse 110 H 04/30/20 00:01 Resp 16 04/30/20 00:01 BP 118/63 04/30/20 00:01 Pulse Ox 96 04/30/20 00:01 Body Mass Index 38.7 <Emily Landis PA-C - Last Filed: 04/30/20 07:46> Const: General: healthy appearing, comfortable, no acute distress and alert <Emily Landis PA-C - Last Filed: 04/30/20 07:46> Orientation/consciousness: patient oriented x3 <Emily Landis PA-C - Last Filed: 04/30/20 07:46> Eyes: Sclerae: sclerae normal <Emily Landis PA-C - Last Filed: 04/30/20 07:46> Resp: Effort & Inspection: normal respiratory effort <Emily Landis PA-C - Last Filed: 04/30/20 07:46> Cardio: Rate: regular rate <Emily Landis PA-C - Last Filed: 04/30/20 07:46> GI: Inspection: No distended and Yes incision (dressings intact) <FABIAN Renee Last Filed: 04/30/20 07:46> Palpation (GI): Soft to palpation, Tenderness to palpation present (GI) (mild umbilical), no guarding, not rigid and No Rebound tenderness present <FABIAN Renee Last Filed: 04/30/20 07:46> Skin: General skin exam: no rashes or lesions noted <Emily Landis PA-C - Last Filed: 04/30/20 07:46> Neuro: General: patient oriented x3 <Emily Landis PA-C - Last Filed: 04/30/20 07:46> Extrem: General: Yes no clubbing, cyanosis or edema <Emily Landis PA-C - Last Filed: 04/30/20 07:46> Progress Note: A&P Assessment and plan (1) Acute appendicitis: Status: Acute <Emily Landis PA-C - Last Filed: 04/30/20 07:46> (2) S/P laparoscopic appendectomy: Status: Acute <Emily Landis PA-C - Last Filed: 04/30/20 07:46> Assessment and Plan: POD #1, doing well, comfortable. VSS. Abd exam is benign, dressings intact and clean. Will reassess later today, if tolerating solid diet, appears stable for d/c to home today with f/u with Dr. Ram in office. <Emily Landis PA-C - Last Filed: 04/30/20 07:46> Patient seen and examined late this morning, agree with above. She is tolerating a solid diet. She has good pain control with acetaminophen. She feels ready for discharge. She will go home later today and will follow up in the office in 2 weeks. <Marbella Ram MD - Last Filed: 04/30/20 17:21> Fall Risk Details Current Medications: Current Medications Generic Name Dose Route Start Last Admin Trade Name Demetrioq PRN Reason Stop Dose Admin Acetaminophen 650 mg 04/29/20 18:30 04/30/20 05:30 Acetaminophen 325 Mg Tablet PO 650 mg Q6H EDITH Administration Docusate Sodium 100 mg 04/29/20 21:00 04/29/20 21:21 Docusate Sodium 100 Mg Capsule PO 100 mg BID EDTIH Administration Dextrose/Lactated Ringer's 1,000 mls @ 100 mls/hr 04/29/20 18:30 04/30/20 07:14 D5lr IVCONT 100 mls/hr .Q10H EDITH Administration Morphine Sulfate 4 mg 04/29/20 18:30 Morphine Sulfate 2 Mg/Ml Cartridge IVPUSH Q3H PRN Pain, Severe (Pain Scale 7-10) Ondansetron HCl 4 mg 04/29/20 18:30 Ondansetron Hcl 4 Mg/2 Ml Vial IVPUSH Q8H PRN nausea Oxycodone HCl 5 mg 04/29/20 18:30 Oxycodone Hcl Immed Release 5 Mg Tablet PO Q6H PRN Pain, Moderate (Pain Scale 4-6 Sodium Chloride 3 ml 04/30/20 00:00 04/29/20 21:23 0.9 % Sodium Chloride Flush 3 Ml Syringe IVFLUSH Not Given QSHIFT [facility] <Emily Landis PA-C - Last Filed: 04/30/20 07:46> Time Spent With Patient Time: Total time spent is greater than 50% in coordination of care (as documented) at patient's floor/unit and/or counseling patient: <FABIAN Renee Last Filed: 04/30/20 07:46> Time with patient: 15 - 24 minutes <Emily Landis PA-C - Last Filed: 04/30/20 07:46>
[2020-04-30 07:48] VITALS: BP 109/66; PULSE 93; RESP 18; TEMP 36.9; O2SAT 97
--- NOTE | 2020-04-30 08:14 | MHC.CM.PN ---
Patient is likely to be dc to home today, no services. CM has initiated and will follow for dc planning.
[2020-04-30 11:47] VITALS: BMI 38.7
--- NOTE | 2020-04-30 12:32 | MHC.CM.PN ---
Patient has been medically cleared for dc to home today, no services.
--- NOTE | 2020-04-30 14:28 | HO.POSTANES ---
Post Anesthesia Evaluation Post Anesthesia Evaluation Vital Signs: Vital Signs Temp Pulse Resp BP Pulse Ox 04/30/20 07:48 98.4 F 93 18 109/66 97 Anesthesia: General Endotracheal-GETA Mental Status: Awake Pain Control: Satisfactory Nausea/Vomiting: None Hydration: Adequate Anesthesia-Related Issues: No Anes. Related Issues
--- NOTE | 2020-05-01 10:28 | PM.DS ---
DS: Providers Provider Date of admission: 04/29/20 18:30 Primary care physician: None Physician DS: Diagnosis Discharge Diagnosis (1) S/P laparoscopic appendectomy: Status: Acute DS: Medications Discharge Medications Home Medications: Home Medications Medication Instructions Recorded Confirmed No Known Home Meds 04/29/20 04/29/20 DS: Summary Hospital Course Hospital Course: BRIEF HPI:Shabana Hall is a 19 year old female who had acute onset of abdominal pain nausea and vomiting around midnight last night after eating some spicy chips. The symptoms persisted and the pain became worse as the night went on leading to presentation to the emergency room. Initially, the pain was in the mid epigastric area, but over time it has migrated to the lower abdomen. She does not report fever or chills. She had 1 similar episode in the past that resolved spontaneously after short period of time. She does not report diarrhea or constipation. White blood count is mildly elevated at 11.9. CT scan of the abdomen and pelvis is consistent with early acute appendicitis. HOSPITAL COURSE: The patient was admitted to the surgical service for further treatment of the acute appendicitis. Diagnosis of acute appendicitis and treatment options were discussed including antibiotic therapy, laparoscopic appendectomy and open appendectomy. The patient elected to proceed with the appendectomy and she was added onto the OR schedule for that day. On 04/29/20, a laparoscopic appendectomy was performed by Dr. Marbella Ram without complication. The patient tolerated the procedure well and was admitted for observation. She had an uncomplicated post operative course. On POD #1, the patient felt well, she was comfortable and OOB without difficulty. Her abdomen was benign with appropriate post op tenderness and dressings were c/d/i. She was reassessed later in the day and was tolerating a solid diet without N/V and felt ready for discharge. She was discharged to home on 04/30/2020 in stable condition. She is to follow up in the office in 2 weeks. Status at Discharge Functional status at discharge: independent ambulation Overall status at discharge: patient is progressing back to baseline Time Spent with Patient Time attestation: Total time spent providing and/or coordinating discharge services: Discharge coordination time: Less than 30 minutes Physical Exam Vital Signs: Vital Signs: Last Vital Signs Temp 98.4 F 04/30/20 07:48 Pulse 93 04/30/20 07:48 Resp 18 04/30/20 07:48 BP 109/66 04/30/20 07:48 Pulse Ox 97 04/30/20 07:48 Body Mass Index 38.7 Const: General: healthy appearing, comfortable, no acute distress and alert Orientation/consciousness: patient oriented x3 Resp: Effort & Inspection: normal respiratory effort GI: Inspection: No distended and Yes incision (dressings c/d/i) Palpation (GI): Soft to palpation, Tenderness to palpation present (GI) (mild incisional tenderness, umbilical), no guarding, not rigid and No Rebound tenderness present Skin: General skin exam: no rashes or lesions noted Neuro: General: patient oriented x3 Extrem: General: Yes no clubbing, cyanosis or edema DS: Data Data Completed and Pending Completed studies during hospitalization [Text1]: Procedures Resection of Appendix, Percutaneous Endoscopic Approach (04/29/20) Pending studies at discharge: Pending at discharge 04/29/20 17:44 Surgical [PTH] Routine Labs on day of discharge: 04/29/20 11:00 IV insert/maintain .Now 0.9 % Sodium Chloride [Ns] 1,000 ml IV 999 mls/hr Famotidine/PF [Pepcid/PF] 20 mg IVPUSH ONCE ONE Lidocaine HCl Viscous 2 % [Xylocaine Viscous 2 % Oral Janette] 15 ml MUCOUS MEM ONCE ONE Magnesium Hydrox/Alum Hydrox [Maalox] 30 ml PO ONCE ONE 04/29/20 11:01 ondansetron HCL [Zofran] 4 mg IVPUSH ONCE ONE 04/29/20 11:15 Basic Metabolic Panel Stat Complete Blood Count Auto Diff Stat Hold Lt Blue - Possible Coag Stat Liver Panel Stat 04/29/20 12:26 Ur Preg Test Stat 04/29/20 13:06 CT abdomen pelvis w con Stat Morphine Sulfate 4 mg IVPUSH ONCE ONE ondansetron HCL [Zofran] 4 mg IVPUSH ONCE ONE 04/29/20 13:46 iohexoL 350 MG/ML [Omnipaque 350 MG/ML] 85 ml IV ONCE ONE 04/29/20 14:33 Piperacillin Sodium/Tazobactam [Zosyn] 3.375 gm 0.9 % Sodium Chloride [Ns] 50 ml IV ONCE 04/29/20 14:34 Consult Rx Perform Med Rec 1 each MISCELLANE ONCE PRN 04/29/20 14:45 COVID-19 ID NOW ([facility]) Stat Lactic Acid Stat 04/29/20 15:09 Piperacillin Sodium/Tazobactam [Zosyn] 3.375 gm IV .STK-MED ONE 04/29/20 15:34 Transfer Order Routine 04/29/20 15:43 Ketamine HCl/NS 50 mg IVPUSH .STK-MED ONE Lidocaine HCl 2 % MPF [Xylocaine 2 % MPF] 5 ml .ROUTE .STK-MED ONE Midazolam HCl/PF [Versed] 2 mg .ROUTE .STK-MED ONE dexAMETHasone sod phosphate [Decadron] 4 mg .ROUTE .STK-MED ONE ondansetron HCL [Zofran] 4 mg .ROUTE .STK-MED ONE propofoL [Diprivan] 200 mg IVPUSH .STK-MED ONE 04/29/20 15:47 Bupivacaine MPF 0.75 % w/EPI [Sensorcaine MPF 0.75%/EPI 1:200,000] 30 ml .ROUTE .STK-MED ONE fentaNYL citrate/PF [Sublimaze] 50 mcg .ROUTE .STK-MED ONE 04/29/20 15:48 fentaNYL citrate/PF [Sublimaze] 50 mcg .ROUTE .STK-MED ONE 04/29/20 15:50 Rocuronium [place] [Zemuron] 100 mg IV .STK-MED ONE 04/29/20 16:15 cefoTEtan disodium [Cefotan] 2 gm .ROUTE .STK-MED ONE 04/29/20 16:30 Lactated Ringers [Lr] 1,000 ml IVCONT 50 mls/hr 04/29/20 16:56 Acetaminophen [Ofirmev] 1,000 mg in 100 ml IV As directed 04/29/20 17:40 fentaNYL citrate/PF [Sublimaze] 25 mcg IVPUSH Q5M PRN ondansetron HCL [Zofran] 4 mg IVPUSH ONCE PRN oxyCODONE HCl Immed Release [Roxicodone] 10 mg PO ONCE PRN 04/29/20 17:48 Ketorolac Tromethamine [Toradol] 30 mg .ROUTE .STK-MED ONE Sugammadex Sodium [[place]] 200 mg IVPUSH .STK-MED ONE 04/29/20 18:30 Acetaminophen [Tylenol] 650 mg PO Q6H Dextrose 5 % and Lactated Ring [D5lr] 1,000 ml IVCONT 100 mls/hr Morphine Sulfate 4 mg IVPUSH Q3H PRN cefoTEtan disod/Dextrose,Iso [Cefotan] 2 gm in 50 ml IV PREOP ondansetron HCL [Zofran] 4 mg IVPUSH Q8H PRN oxyCODONE HCl Immed Release [Roxicodone] 5 mg PO Q6H PRN 04/29/20 18:30 Incentive Spirometry Q2H WHILE AWAKE Intake and Output Q8HR Vital Signs Q4H 04/29/20 18:33 fentaNYL citrate/PF [Sublimaze] 25 mcg IVPUSH Q5M PRN 04/29/20 18:34 ondansetron HCL [Zofran] 4 mg IVPUSH ONCE PRN 04/29/20 21:00 Docusate Sodium [Colace] 100 mg PO BID 04/30/20 00:00 0.9 % Sodium Chloride Flush [NS Flush] 3 ml IVFLUSH QSHIFT Laboratory Last Values WBC 11.9 X10*3/uL (4.8-10.8) H 04/29/20 11:15 RBC 4.78 X10*6/uL (4.20-5.50) 04/29/20 11:15 Hgb 13.3 g/dl (12.0-16.0) 04/29/20 11:15 Hct 40.5 % (37-47) 04/29/20 11:15 MCV 84.7 fL (80-98) 04/29/20 11:15 MCH 27.8 pg (27.0-33.0) 04/29/20 11:15 MCHC 32.8 g/dl (31.0-35.0) 04/29/20 11:15 RDW 13.4 % (11.0-16.0) 04/29/20 11:15 Plt Count 275 X10*3/uL (160-400) 04/29/20 11:15 MPV 10.6 fL (9.4-12.3) 04/29/20 11:15 Immature Gran % (Auto) 0.3 % (0.0-0.4) 04/29/20 11:15 Neut % (Auto) 87.5 % (45-73) H 04/29/20 11:15 Lymph % (Auto) 7.8 % (20-40) L 04/29/20 11:15 [place] % (Auto) 3.8 % (2-11) 04/29/20 11:15 Eos % (Auto) 0.3 % (0-4) 04/29/20 11:15 Baso % (Auto) 0.3 % (0-2) 04/29/20 11:15 Lymph # (Auto) 0.9 X10*3/uL (1.2-4.9) L 04/29/20 11:15 [place] # (Auto) 0.5 X10*3/uL (0.1-1.2) 04/29/20 11:15 Eos # (Auto) 0.0 X10*3/uL (0.0-0.4) 04/29/20 11:15 Baso # (Auto) 0.0 X10*3/uL (0.0-0.2) 04/29/20 11:15 Abs Immat Gran (auto) 0.03 X10*3/uL (0.00-0.03) 04/29/20 11:15 Absolute Neuts (auto) 10.4 X10*3/uL (2.0-8.3) H 04/29/20 11:15 Absolute Nucleated RBC 0.000 X10*3/uL (0.0-0.012) 04/29/20 11:15 Nucleated RBC % (auto) 0.0 /100WBC (0.0-0.2) 04/29/20 11:15 Hold Blue Top SEE NOTE 04/29/20 11:15 Sodium 136 mmol/L (135-145) 04/29/20 11:15 Potassium 4.2 mmol/l (3.3-5.1) 04/29/20 11:15 Chloride 101 mmol/L (96-108) 04/29/20 11:15 Carbon Dioxide 25 mmol/L (22-29) 04/29/20 11:15 Anion Gap 14 (12-20) 04/29/20 11:15 BUN 7 mg/dL (9-16) L 04/29/20 11:15 Creatinine 0.67 mg/dL (0.5-1.4) 04/29/20 11:15 Estim Creat Clear Calc 160.3 04/29/20 11:15 Estimated GFR > 60 04/29/20 11:15 Random Glucose 168 mg/dL (60-115) H 04/29/20 11:15 Lactic Acid 1.4 mmol/L (0.5-2.0) 04/29/20 14:45 Calcium 8.9 mg/dL (8.4-10.2) 04/29/20 11:15 Total Bilirubin 0.5 mg/dL (0.0-1.0) 04/29/20 11:15 Direct Bilirubin 0.2 mg/dL (0.0-0.5) 04/29/20 11:15 AST 41 U/L (5-31) H 04/29/20 11:15 ALT 60 U/L (0-31) H 04/29/20 11:15 Alkaline Phosphatase 101 U/L (39-117) 04/29/20 11:15 Total Protein 7.2 g/dL (6.5-8.0) 04/29/20 11:15 Albumin 4.2 g/dL (3.5-5.0) 04/29/20 11:15 Urine Color YELLOW 04/29/20 12:26 Urine Appearance HAZY 04/29/20 12:26 Urine pH 8.0 (5.0-8.0) 04/29/20 12:26 Ur Specific [place] 1.020 (1.005-1.025) 04/29/20 12:26 Urine Protein NEG MG/DL (NEG-TRACE) 04/29/20 12:26 Urine Glucose (UA) NEG MG/DL (NEG) 04/29/20 12:26 Urine Ketones NEG MG/DL (NEG) 04/29/20 12:26 Urine Blood 3+ (NEG) H 04/29/20 12:26 Urine Nitrite NEG (NEG) 04/29/20 12:26 Ur Leukocyte Esterase NEG (NEG) 04/29/20 12:26 Urine RBC 10-14 /HPF (0) H 04/29/20 12:26 Urine WBC 0 /HPF (0-4) 04/29/20 12:26 Ur Squamous Epith Cells 1+ /LPF 04/29/20 12:26 Talc Crystals 2+ /LPF 04/29/20 12:26 Urine Bacteria NONE /LPF 04/29/20 12:26 Urine Mucus 1+ /LPF 04/29/20 12:26 Urine Test NEGATIVE (NEGATIVE) 04/29/20 12:26 COVID-19 ([facility]) Negative (Negative) 04/29/20 14:45 COVID-19 Clin Com See Note 04/29/20 14:45 Preliminary micro results at discharge 04/29/20 14:45 Blood Culture - Preliminary Blood - Venous No growth after 24 hours. 04/29/20 14:45 Blood Culture - Preliminary Blood - Venous No growth after 24 hours. Discharge Plan Discharge Patient Disposition: Home, Self-Care Referrals: Marbella Ram MD [Physician] - 2 Weeks Physician,None [Primary Care Provider] - Discharge Medications: No Action No Known Home Meds RF: 0 Discharge Orders: Discharge Order (Routine); Ordered 04/30/20 Ordered By: Marbella Ram Diet: advance to usual diet Activity on Discharge: No heavy lifting Discharge Date/Time: 04/30/20 12:44 Activity Restrictions/Additional Instructions: If the incision area is tender, you may apply an ice pack for short intervals (No more than 20 minutes on, followed by at least 20 minutes off). Do not apply heat. Do not use creams, lotions, or topical antibiotics unless instructed to do so by your surgeon. These can cause infection or allergic reaction. Remove bandaids in 1 day. Ok to shower. You have steri strips (small white cloth strips) covering your incision- these will fall off ~1 week. Call Your Doctor If: -Your temperature exceeds 101.5? F -You experience excessive pain or swelling -You have an unexpected reaction to medication -You have excessive bleeding -You experience continued vomiting/nausea -Your incision begins to separate -Your incision shows signs of infection such as increased redness, swelling, excessive pain, drainage (light blood or clear fluid is normal) or heat Visit Report Forms: Patient Portal Discharge page Care Plan Goals: Return to baseline health and activity. Health Concerns: Acute appendicitis s/p lap appy Plan of Treatment: Discharge to home with f/u in office.
== END 2020-04-30 12:44 | disposition home or self-care (01) | DRG 234 ==
LOC: HO.ED 17:23 → HO.IMC 18:38
PROVIDERS: Nurse Practitioner Family; Admitting Provider Surgery; Emergency Provider Emergency Medicine; Visit Provider Surgery
PROC: 0DTJ4ZZ Resection of Appendix, Percutaneous Endoscopic Approach (ICD-10-PCS; CPT 44970; principal; 2020-04-29 16:40)
DX: K35.80 Unspecified acute appendicitis (principal); Z20.828 Contact with and (suspected) exposure to other viral communicable diseases
CPT/HCPCS: 44970; 36415; 74177; 80048; 80076; 81001; 81025; 83605; 85025; 87040; 87635; 88304; 88341; 88342; 88360; 96361; 96365; 96375; 96376; 99285; J0131; J1100; J1885; J2250; J2270; J2405; J2543; J3010; Q9967

== ENCOUNTER → 2020-05-20 10:59 | Outpatient (BNVA) | payer OTHER, SELFPAY | PROVIDERS: Visit Provider Surgery | DX: K35.80 Unspecified acute appendicitis (principal); Z90.49 Acquired absence of other specified parts of digestive tract; D3A.020 Benign carcinoid tumor of the appendix | CPT/HCPCS: 99212 ==

== ENCOUNTER 2020-07-07 10:05 | Day surgery (SDC) | payer OTHER, SELFPAY ==
[2020-07-07 10:22] VITALS: BP 120/77; PULSE 102; RESP 18; TEMP 36.1; O2SAT 99; BMI 36.8
--- NOTE | 2020-07-07 10:29 | P.CONAN_ITS ---
[facility] Active Problems Active Problems: All Active Problems (Updated 05/23/20 @ 12:53 by Luci sanchez MD) Carcinoid, of appendix (Acute) S/P laparoscopic appendectomy (Acute) Acute appendicitis (Acute) Past Medical History Medical History Bartholin cyst Carcinoid, of appendix No known health problems Family History Family History Maternal Grandmother Hx of breast cancer Father History of diabetes mellitus Mother No problems noted. Surgical History Surgical History History of laparoscopic appendectomy Social History Social History Household Members: Significant Other Housing: Apartment Alcohol intake: never Smoking Status: Never smoker Use of substances other than those prescribed or required for medical reasons: No Have you been hit, kicked, punched, or otherwise hurt by someone within the past year? If so, by whom?: No Advance Directives: No Advance Directives Information Provided: Yes Recently lost weight without trying: No service: No Current occupational status: employed Meds Allergies Allergy/AdvReac Type Severity Reaction Status Date / Time No Known Allergies Allergy Verified 04/29/20 10:59 Active Medications: Current Medications Generic Name Dose Route Start Last Admin Trade Name Freq PRN Reason Stop Dose Admin Sodium Biphosphate/Sodium Phosphate 133 ml 07/07/20 10:18 Sodium Phosphate,[place]-Dibasic 133 Ml Enema [place] ONCE PRN Poor Colonoscopy Prep Results Home Medications Medication Instructions Recorded Confirmed Last Taken Type No Known Home Meds 07/04/20 07/04/20 Unknown History Exam Exam Date and Time: July 07, 2020 3539
[2020-07-07 11:21] LABS: UPreg QC Valid YES; Urine Pregnancy NEGATIVE (NEGATIVE)
--- NOTE | 2020-07-07 11:44 | HO.ANESPROP2 ---
COUNT INCLUDES THE [facility] Active Problems Active Problems: All Active Problems (Updated 05/23/20 @ 12:53 by Luci Cheney MD) Carcinoid, of appendix (Acute) S/P laparoscopic appendectomy (Acute) Acute appendicitis (Acute) Past Medical History Medical History Bartholin cyst Carcinoid, of appendix No known health problems Family History Family History Maternal Grandmother Hx of breast cancer Father History of diabetes mellitus Mother No problems noted. Surgical History Surgical History History of laparoscopic appendectomy Social History Social History Household Members: Significant Other Housing: Apartment Alcohol intake: never Smoking Status: Never smoker Use of substances other than those prescribed or required for medical reasons: No Have you been hit, kicked, punched, or otherwise hurt by someone within the past year? If so, by whom?: No Advance Directives: No Advance Directives Information Provided: Yes Recently lost weight without trying: No service: No Current occupational status: employed Meds Allergies Allergy/AdvReac Type Severity Reaction Status Date / Time No Known Allergies Allergy Verified 04/29/20 10:59 Active Medications: Current Medications Generic Name Dose Route Start Last Admin Trade Name Freq PRN Reason Stop Dose Admin Sodium Biphosphate/Sodium Phosphate 133 ml 07/07/20 10:18 Sodium Phosphate,[place]-Dibasic 133 Ml Enema [place] ONCE PRN Poor Colonoscopy Prep Results Home Medications Medication Instructions Recorded Confirmed Last Taken Type No Known Home Meds 07/04/20 07/04/20 Unknown History Exam Exam Date and Time: July 07, 2020 1144 Height,Weight and Vital Signs: Height 5 ft 7 in Weight 106.594 kg Last Vital Signs Temp 97 F 07/07/20 10:22 Pulse 102 H 07/07/20 10:22 Resp 18 07/07/20 10:22 BP 120/77 07/07/20 10:22 Pulse Ox 99 07/07/20 10:22 Pertinent Lab Results Pertinent Lab Results: Laboratory Tests 07/07/20 Unknown Urine Test NEGATIVE Airway Mallampati Class: II TM Dist: >3cm Neck ROM: Full Heart: RRR Lungs: CTA
[2020-07-07 13:01] VITALS: BP 120/58; PULSE 94; RESP 12; TEMP 36.3; O2SAT 97
--- NOTE | 2020-07-07 13:03 | PM.OP ---
Brief Operative Note Date of Service: 07/07/20 Pre-op diagnosis: Appendiceal carcinoid tumor Post-op diagnosis: other (Rectal polyp, Internal hemorrhoids) Procedure: Colonoscopy to cecum and TI with biopsy and removal of polyp Surgeon: Juan Carlos Mahmood Anesthesia: MAC Estimated blood loss (mL): 3.0 Pathology: other (A. Rectal polyp) Condition: stable Disposition: PACU
[2020-07-07 13:21] VITALS: BP 118/79; PULSE 81; RESP 16; TEMP 36.3; O2SAT 99
--- NOTE | 2020-07-07 13:23 | OP_ITS ---
SURGEON: Juan Carlos Mahmood MD INDICATIONS: The patient presents for evaluation of the recent finding of an appendiceal carcinoid tumor. Full consent was obtained from her for this, including the risks of bleeding and perforation. PREOPERATIVE DIAGNOSIS: Appendiceal carcinoid tumor. POSTOPERATIVE DIAGNOSIS: PROCEDURE PERFORMED: ESTIMATED BLOOD LOSS: COMPLICATIONS: ANESTHESIA: Monitored anesthesia care. ASSISTANTS: SPECIMENS: POSTOPERATIVE DIAGNOSES: Appendiceal carcinoid tumor, rectal polyp, and internal hemorrhoids. PROCEDURES PERFORMED: Colonoscopy to cecum and terminal ileum with biopsy and removal of polyp. DESCRIPTION OF PROCEDURE: The patient was placed in the left lateral decubitus position. The digital rectal exam revealed no abnormalities. The Olympus video pediatric colonoscope was entered into the rectum and advanced easily to the cecum. Once in the cecum, I did identify normal-appearing cecal pouch with appendiceal orifice and a normal-appearing ileocecal valve. The terminal ileum was cannulated and appeared normal. The scope was withdrawn back in the colon. The entire cecum was well visualized. The appendiceal orifice was visualized without any sign of polyp. The scope was then slowly withdrawn assessing all mucosal surfaces carefully. Preparation was excellent. I did not visualize any sign of colitis or angiodysplasia. In the very distal rectum seen both in the forward viewing and retroflexed position, was a flat approximately 3 or 4 mm polyp, which was biopsied and completely removed with cold biopsy forceps. The remainder of the rectum appeared normal both in the forward viewing and retroflexed positions, other than some internal hemorrhoids. No other polyps were seen in the colon. The scope was withdrawn from the patient. She tolerated the procedure well and was returned to recovery area in stable condition. IMPRESSION: 1. Small rectal polyp, status post biopsy and removal. 2. Internal hemorrhoids. PLAN: The results of biopsy will be checked. Depending upon those findings, we could then decide if she would need any further colonoscopies. If the rectal polyp is only hyperplastic, then I do not think she will need any further colonoscopies from my standpoint. If it happens to show a carcinoid tumor or a tubular adenoma, then we would repeat the colonoscopy within 3 years. MD PARK Coburn/JULIÁN / [id number] [id number]
== END 2020-07-07 13:43 | disposition home or self-care (01) ==
PROVIDERS: Visit Provider Internal Medicine
PROC: 0DJD8ZZ Inspection of Lower Intestinal Tract, Via Natural or Artificial Opening Endoscopic (ICD-10-PCS; CPT 45378; principal; 2020-07-07 11:10)
DX: D3A.098 Benign carcinoid tumors of other sites (principal); D12.8 Benign neoplasm of rectum; K64.8 Other hemorrhoids; Z90.49 Acquired absence of other specified parts of digestive tract
CPT/HCPCS: 45380; 81025; 88305; J2250

== ENCOUNTER → 2020-10-03 08:05 | Outpatient (BNVA) | payer OTHER, SELFPAY | PROVIDERS: Visit Provider Surgery ==

== ENCOUNTER 2024-02-03 09:33 | Emergency (ER) | payer OTHER, SELFPAY ==
[2024-02-03 09:40] VITALS: BP 116/71; PULSE 96; RESP 16; TEMP 37.2; O2SAT 97; BMI 35.7
[2024-02-03 10:35] LABS: Appearance Urine Cloudy; Color Urine Yellow; Glucose Urine UA Negative (Negative); Leukocyte Esterase Urine Moderate (2+) (Negative); Nitrite Urine Negative (Negative); Specific Gravity - Urine 1.025 (1.005-1.025); UMIC TRIGGER UACC YES; Urine Blood Large (3+) (Negative); Urine Ketones Negative (Negative); Urine Protein Negative (Neg-Trace)
[2024-02-03 10:36] LABS: UPreg QC Valid YES; Urine Pregnancy NEGATIVE (NEGATIVE)
[2024-02-03 10:38] LABS: IDNOW Serial# 08D9AD1C; Strep A Nucleic Acid Positive (Negative)
[2024-02-03 10:52] LABS: Bacteria Urine 2+ (None Seen); Hyaline Casts Urine 0-2 /LPF (0-2); UACC Culture Trigger YES; WBC Urine 21-50 /HPF (0-5)
[2024-02-03 10:58] VITALS: BP 121/68; PULSE 91; RESP 16; TEMP 37.2; O2SAT 99
--- NOTE | 2024-02-03 11:05 | ED_ITS ---
HPI - Female Genitourinary General Chief complaint: Urogenital-Female Stated complaint: Vomiting Time Seen by Provider: 02/03/24 10:48 Source: patient Mode of arrival: ambulatory Limitations: no limitations History of Present Illness ED Provider: Jake PERALTA HPI Narrative: This is a 23-year-old female history of chlamydia presents to the emergency department with concerns of vaginal discharge, urinary frequency, urgency x 1 month sore throat since Tuesday. Patient reports that she was recently treated for chlamydia she was given a shot and then given meds, she reports she was then sexually active with the same sexual partner and she found out that he was never treated. She continues to have vaginal discharge, urinary frequency and urgency. She also reports sore throat since Tuesday has been worsening ever since. Patient denies fevers, chills, nausea, vomiting, abdominal pain, headache, vision changes, dizziness, weakness, flank pain, headache, vision changes dizziness. Related Data Previous Rx's ?Medication ?Instructions ?Recorded amoxicillin 875 mg-potassium 1 tab PO BID 7 days #14 tabs 02/03/24 clavulanate 125 mg tablet doxycycline hyclate 100 mg capsule 100 mg PO BID 10 days #20 caps 02/03/24 metronidazole 500 mg tablet 500 mg PO BID 7 days #14 tabs 02/03/24 Allergies Allergy/AdvReac Type Severity Reaction Status Date / Time No Known Allergies Allergy Verified 02/03/24 09:44 Review of Systems Review of Systems: Yes all other systems are reviewed and are negative PMFSH Past Medical History Attestation statement: The following information was validated with the patient. Source: old records reviewed and nursing notes reviewed Medical History Carcinoid, of appendix Bartholin cyst No known health problems Surgical History History of laparoscopic appendectomy Family History Family History Maternal Grandmother Hx of breast cancer Father History of diabetes mellitus Mother No problems noted. Social History Social History Household Members: Significant Other Housing: Apartment Are you a primary care transitions nurse to a significant other at home: No Do you presently have visiting nurse or other home services: No Alcohol intake: never Advance Directives: No Advance Directives Information Provided: Yes service: No Current occupational status: employed Physical Exam Vital Signs: Vital Signs: Last Vital Signs Temp 98.9 F 02/03/24 10:58 Pulse 91 02/03/24 10:58 Resp 16 02/03/24 10:58 BP 121/68 02/03/24 10:58 Pulse Ox 99 02/03/24 10:58 O2 Del Method Room Air 02/03/24 10:58 BMI result Body Mass Index 35.7 vss Appearance: Alert.? Oriented X3.? No acute distress.? Head: Normocephalic, atraumatic, no step-offs or deformities Eyes: Pupils equal, round and reactive to light.? ENT: Pharynx hypertrophy to bilateral tonsils without exudate. Uvula midline. Speaking in full sentences controlling secretions well..? Neck: Normal inspection.? Neck supple.? CVS: Normal heart rate and rhythm.? Pulses normal.? Respiratory: No respiratory distress.? Breath sounds normal.? Abdomen: Soft and nontender.? Skin: Skin warm and dry.? Normal skin color.? Normal skin turgor.? Extremities: No lower extremity edema.? No calf ttp. 5/5 strength to bilateral upper and lower extremities Back: no CVA tenderness bilaterally Neuro: Oriented X 3.? No motor deficit.? No sensory deficit. CN 2-12 intact Course Reevaluation(s) Reevaluation #1: Patient's urine positive for infection. Strep test positive for strep. Will treat prophylactically for STDs. Educated patient on diagnosis and treatment plan, answered all question, patient verbalizes understanding. At this time patient will be discharged home, advised to return with new or worsening symptoms. Educated on worrisome signs and symptoms and when to return. At this time I feel comfortable discharge home. Time: 11:11 Medical Decision Making Medical Decision Making [facility] Narrative: 1102 23-year-old female presents with concerned she may have be in reinfected with chlamydia, also reporting sore throat since Tuesday Physical exam hypertrophy to bilateral tonsils without exudate. Uvula midline. Speaking in full sentences controlling secretions well. No abdominal tenderness on exam. No CVA tenderness History and physical exam concerning for STDs and possible pharyngitis. No signs of airway compromise. No signs of acute abdomen. There is some suspicion for gonococcal pharyngitis will obtain culture and treat prophylactically Patient agrees to prophylactic treatment for gonorrhea, chlamydia and trichomonas. 500mg IM ceftriaxone has been given here and scripts for doxycycline 100 mg po BID X 7 days and metronidazole 500 mg po BID X 7 days have been given to the patient. Educated on safe sex practices, full pannel STD testing and speaking to? partners on possible STD. Plan culture, flu, COVID, RSV, urine, strep swab Differential Diagnosis Differential Diagnoses: The differential diagnosis associated with the presentation includes History and physical exam concerning for STDs and possible pharyngitis. No signs of airway compromise. No signs of acute abdomen. There is some suspicion for gonococcal pharyngitis will obtain culture and treat prophylactically Admission/Observation Consideration of admission/observation: Escalation of care including admission/observation considered possible Lab Data MDM Lab Attestation statement: I reviewed the patient's lab results. Labs: Lab Results 02/03/24 Range/Units 10:23 Urine Color Yellow Urine Appearance Cloudy Urine pH 6.0 (5.0-9.0) Ur Specific [place] 1.025 (1.005-1.025) Urine Protein Negative (Neg-Trace) mg/dL Urine Glucose (UA) Negative (Negative) mg/dL Urine Ketones Negative (Negative) mg/dL Urine Blood Large (3+) H (Negative) Urine Nitrite Negative (Negative) Ur Leukocyte Esterase Moderate (2+) H (Negative) Urine RBC 6-10 H (0-2) /HPF Urine WBC 21-50 (0-5) /HPF Ur Squamous Epith Cells 6-10 (0-2) /HPF Urine Bacteria 2+ (None Seen) Hyaline Casts 0-2 (0-2) /LPF Urine Test NEGATIVE (NEGATIVE) S. pyogenes GrpA [place] Positive A (Negative) External Record Review External record reviewed: Office record and Outpatient record Prescription Management I considered prescription management with: Antibiotic Chronic Conditions Patient?s care impacted by: Other (Chlamydia) Discharge Plan Discharge Clinical Impression: Pharyngitis, Urinary tract infection, Screen for STD (sexually transmitted disease) Patient Disposition: Home, Self-Care Instructions: Pharyngitis (ED), Urinary Tract Infection in Women (ED) Additional Instructions: Take your medications as prescribed. If you were prescribed antibiotics today, it is important that you take your medication to their entirety, do not skip any doses, do not finish them early. Follow-up with your primary care provider this week. Return to the emergency department with new or worsening symptoms. Such as fevers, chills, chest pain, shortness of breath, nausea, vomiting, dizziness, headache, vision changes, lethargy In case of emergency call 911 You were treated here today with ceftriaxone, a medication that treats gonorrhea. I have sent to your pharmacy Metronidazole that covers trichomonas, and Doxycycline which covers for chlamydia. Please be reevaluated by a healthcare provider after completing your antibiotics. Do not stop them early, do not skip any doses. Until you are reevaluated by a health care provider please practice safe sex as disucussed. Please also have a conversation with your sexual partners.? I also advise you to obtain full panel STD testing to test for other STDs including HIV, Hepatitis B & C and syphilis with your PCP or a local clinic. Prescriptions: New doxycycline hyclate 100 mg capsule 100 mg PO BID 10 Days Qty: 20 0RF metronidazole 500 mg tablet 500 mg PO BID 7 Days Qty: 14 0RF amoxicillin-pot clavulanate 875-125 mg tablet 1 tab PO BID 7 Days Qty: 14 0RF Referrals: Physician,None [Primary Care Provider] - 2 days Print Language: Taiwanese
[2024-02-03 11:10] LABS: Influenza A PCR NEGATIVE (Negative); Influenza B PCR NEGATIVE (Negative); Resp Syncy Virus RNA Qual PCR NEGATIVE (Negative); SARS COV2 PCR INHOUSE NEGATIVE (Negative)
[2024-02-03] MEDS: cefTRIAXone sodium 500 MG VIAL IM (11:23)
[2024-02-03] MEDS: dexAMETHasone sod phosphate 10 MG/ML VIAL IVPUSH (11:23)
[2024-02-03] MEDS: metroNIDAZOLE 500 MG TABLET PO (11:24)
[2024-02-03] MEDS: Doxycycline Monohydrate 100 MG CAPSULE PO (11:24)
[2024-02-03 11:41] VITALS: BP 121/68; PULSE 91; RESP 16; TEMP 37.2; O2SAT 99
[2024-02-03 13:48] LABS: CT PCR NOT DETECTED (Not Detect.); NG PCR NOT DETECTED (Not Detect.)
== END 2024-02-03 11:25 | disposition home or self-care (01) ==
PROVIDERS: Physician Assistant Medical; Emergency Provider Emergency Medicine
DX: J02.9 Acute pharyngitis, unspecified (principal); N39.0 Urinary tract infection, site not specified; Z20.2 Contact with and (suspected) exposure to infections with a predominantly sexual mode of transmission; Z03.818 Encounter for observation for suspected exposure to other biological agents ruled out; Z79.899 Other long term (current) drug therapy
CPT/HCPCS: 0241U; 81001; 81025; 87491; 87591; 87651; 96372; 99284; J0696; J1100